=== PATIENT | female | born 1960 | race African-American/Black ===

== ENCOUNTER 2024-01-16 17:31 | Emergency (ER) | payer OTHER, SELFPAY ==
--- NOTE | ~2024-01-16 | US_ITS ---
EXAMINATION: US VENOUS ULTRASOUND WITH DOPPLER LOWER EXTREMITY, BILATERAL CLINICAL INFORMATION: Pain COMPARISON: None available. TECHNIQUE: Ultrasound of the deep veins is performed from the hip to the calf with compression sonography and color and pulse Doppler assessment. Spectral analysis with color-flow imaging is performed. FINDINGS: RIGHT: There is normal venous compression and respiratory variation and augmented flow. The visualized common femoral vein, superficial femoral vein, profunda femoral vein, shows no evidence of deep venous thrombosis. There is no significant popliteal fossa cyst. There is nonocclusive thrombus in the right popliteal vein. LEFT: There is normal venous compression and respiratory variation and augmented flow. The visualized common femoral vein, superficial femoral vein, profunda femoral vein, popliteal vein, and the trifurcation region shows no evidence of deep venous thrombosis. There is no significant popliteal fossa cyst. If the patient's symptoms persist, followup ultrasound in 5 days 7 days might be of value to exclude proximal propagation from a non-visualized calf vein. US/US venous duplex LE BI IMPRESSION: 1. Nonocclusive thrombus in the right popliteal vein. 2. No DVT in the left lower extremity.
--- NOTE | ~2024-01-16 | XR_ITS ---
EXAMINATION: XR CHEST CLINICAL INFORMATION: Volume overload COMPARISON: None available. TECHNIQUE: Frontal view of the chest was obtained. FINDINGS: Heart size upper limits of normal. There is mild upper zone redistribution. No interstitial edema or pleural effusions. No infiltrates or lung masses. XR/XR chest 1V IMPRESSION: Mild upper zone redistribution without interstitial edema. Findings could be secondary to volume overload.
[2024-01-16 17:53] VITALS: BP 124/74; PULSE 80; PULSE 82; RESP 19; TEMP 36.8; O2SAT 96; O2SAT 99; BMI 25.5
--- NOTE | 2024-01-16 18:12 | ED.GENADULT ---
HPI - General Adult General Chief complaint: General Medical Stated complaint: From [facility], cool extremities per PCP. Time Seen by Provider: 01/16/24 17:43 Source: patient, RN notes reviewed and old records reviewed Mode of arrival: EMS Limitations: other (Patient has paranoid delusions and history of schizophrenia) History of Present Illness ED Provider: Jaylen SANABRIA narrative: 63-year-old female presents for evaluation of bilateral leg swelling with calf pain. She she is currently taking Tylenol, Tums, ibuprofen, lisinopril, lorazepam, melatonin, Senokot, autism, hydroxyzine She has a history of atrial fibrillation and does not appear to be anticoagulated The patient presents from [facility] on a section 21 due to bilateral leg swelling and calf pain She denies any known history of DVT/PE She is not sure how long her legs have been swollen Denies any fevers, chills, shortness of breath, cough, chest pain Related Data Previous Rx's ?Medication ?Instructions ?Recorded apixaban 5 mg (74 tabs) tablets in 5 mg PO BID #74 ea 01/16/24 a dose pack (Eliquis DVT-PE Treat 30D Start) Allergies Allergy/AdvReac Type Severity Reaction Status Date / Time almond Allergy Itching Verified 01/16/24 17:57 Review of Systems Constitutional: Constitutional: Denies body ache(s), Denies chills, Denies fever(s) and Denies headache(s) Eyes: Eyes: Denies blurry vision ENT: Denies headache(s) and Denies sore throat Cardiovascular: Cardiovascular: Denies chest pain, Reports pedal edema, Reports claudication, Reports leg edema and Denies dyspnea Respiratory: Respiratory: Denies cough, Denies pain with cough and Denies dyspnea Gastrointestinal: Gastrointestinal: Denies abdominal pain, Denies nausea and Denies vomiting Musculoskeletal: Musculoskeletal: Denies back pain Integumentary/Breasts: Skin/Breast: Denies rash Neurologic: Denies headache(s) [facility] Social History Social History Smoked in Last 30 Days: No Use of substances other than those prescribed or required for medical reasons: No Advance Directives: No Advance Directives Information Provided: No Do you have a plan to hurt others: No Plan Physical Exam ED Vital Signs: Vital Signs - 24 hr 01/16/24 17:53 01/16/24 20:13 Temperature 98.2 F 98.2 F Pulse Rate 80 90 Respiratory Rate 19 17 Blood Pressure 110/55 L Pulse Oximetry 96 96 Oxygen Delivery Method Room Air Room Air BMI result Body Mass Index 25.5 Const General: healthy appearing, comfortable, no acute distress, alert and awake Nutritional Appearance: well nourished Orientation/consciousness: patient oriented x3 HENMT Head: Yes normocephalic and Yes atraumatic Eyes Eyelids: Yes eyelids normal Conjunctivae: conjunctivae normal Sclerae: sclerae normal Corneas: corneas normal Pupils: Equal, round and reactive pupils present EOM: EOMs intact bilaterally Neck Neck: Yes full ROM Resp Effort & Inspection: normal respiratory effort, able to speak in complete sentences and not labored Cardio Other: 2+ bilateral lower extremity edema slightly greater on the right compared to the left. Bilateral calf tenderness. No palpable cords Rate: regular rate Rhythm: regular rhythm GI Inspection: No distended Palpation (GI): Soft to palpation, not firm, nontender, no guarding and not rigid Skin General skin exam: elasticity normal Neuro General: patient oriented x3 Cranial nerves: Yes Equal, round and reactive pupils present and Yes Bilaterally intact EOM present Cognition (Neuro): normal cognition Extrem Other: Moving all extremities well without any obvious deformities Course Reevaluation(s) Reevaluation #1: Patient's ultrasound shows a nonocclusive DVT in the right popliteal vein. No DVT in the left lower extremity. I discussed this with the patient using a flatwork finisher hand. I discussed medication of Eliquis. I answered all the questions the patient asked and she would like a copy of her ultrasound report Time: 21:33 Medical Decision Making Medical Decision Making [facility] Narrative: 63-year-old female with past medical history as documented above presents for evaluation of leg swelling. She denies any trauma to the area. She is a poor historian and is currently at [facility] for paranoid delusions. Plan for labs, chest x-ray and ultrasounds. Will rule out DVT, heart failure with the patient is not in any respiratory distress and has not crackles on exam. Heart failure is favored to be less likely. There is no erythema or skin changes to suggest cellulitis Differential Diagnosis Differential Diagnoses: The differential diagnosis associated with the presentation includes DVT Dependent edema Leg swelling Medication side effect CHF Lab Data [facility] Lab Attestation statement: I reviewed the patient's lab results. No leukocytosis. The patient does have a mild anemia. There is no active bleeding. Considered rectal exam for guaiac testing but the patient declines sodium, potassium within normal limits. Patient's BUN is slightly elevated to 22 with a normal creatinine of 0.91. Patient's BNP is within normal limits 81. 01/16/24 19:57 01/16/24 19:57 Labs: Lab Results 01/16/24 01/16/24 Range/Units 19:57 20:29 WBC 5.4 (4.8-10.8) X10*3/uL RBC 3.57 L (4.20-5.50) X10*6/uL Hgb 9.5 L (12.0-16.0) g/dl Hct 29.8 L (37.0-47.0) % MCV 83.5 (80.0-98.0) fL MCH 26.6 L (27.0-33.0) pg MCHC 31.9 (31.0-35.0) g/dl RDW 13.2 (11.0-16.0) % Plt Count 177 (160-400) X10*3/uL MPV 11.3 (9.4-12.3) fL Immature Gran % (Auto) 0.4 (0.0-0.4) % Neut % (Auto) 65.6 (45-73) % Lymph % (Auto) 23.4 (20-40) % Bullitt % (Auto) 7.6 (2-11) % Eos % (Auto) 2.6 (0-4) % Baso % (Auto) 0.4 (0-2) % Lymph # (Auto) 1.3 (1.2-4.9) X10*3/uL Bullitt # (Auto) 0.4 (0.1-1.2) X10*3/uL Eos # (Auto) 0.1 (0.0-0.4) X10*3/uL Baso # (Auto) 0.0 (0.0-0.2) X10*3/uL Abs Immat Gran (auto) 0.02 (0.00-0.03) X10*3/uL Absolute Neuts (auto) 3.5 (2.0-8.3) x10*3/uL Absolute Nucleated RBC 0.000 (0.0-0.012) X10*3/uL Nucleated RBC % (auto) 0.0 (0.0-0.2) /100WBC PT 11.9 (11.1-13.3) SEC INR 1.0 (0.9-1.1) APTT 29.6 (26.0-36.8) SEC Sodium 142 (135-145) mmol/L Potassium 4.6 (3.3-5.1) mmol/L Chloride 109 H (96-108) mmol/L Carbon Dioxide 24 (22-29) mmol/L Anion Gap 14 (12-20) BUN 22 H (9-16) mg/dL Creatinine 0.91 (0.5-1.4) mg/dL Estim Creat Clear Calc 67.0 Estimated GFR > 60 Random Glucose 108 (60-115) mg/dL Calcium 8.7 (8.4-10.2) mg/dL Total Bilirubin 0.2 (0.0-1.0) mg/dL AST 18 (5-31) U/L ALT 21 (0-31) U/L Alkaline Phosphatase 78 (39-117) U/L B-Natriuretic Peptide 81 (<100) pg/mL Total Protein 6.1 L (6.5-8.0) g/dL Albumin 3.4 L (3.5-5.0) g/dL Lipase 12 (8-78) U/L Independent Interpretation I performed an independent interpretation of an: Plain X-Ray (Agree with Radiology interpretation) Radiology Impression Discussion of test interpretation with radiology: I have reviewed the radiologist's reading. Radiologist Impression: Nonocclusive DVT in the right popliteal vein XR/XR chest 1V IMPRESSION: Mild upper zone redistribution without interstitial edema. Findings could be secondary to volume overload. Discharge Plan Discharge Clinical Impression: Leg swelling, Acute deep vein thrombosis (DVT) of right lower extremity Patient Disposition: [facility] Transfer Details: [facility] Instructions: Deep Vein Thrombosis (ED), Blood Thinners (ED) Additional Instructions: You have a nonocclusive blood clot in your right leg. Take Eliquis as prescribed. Included is discharge instructions regarding blood thinners You are more likely to bleed while taking this medication Follow-up with your primary doctor Return for any worsening symptoms Prescriptions: New Melody DVT-PE Treat 30D Start 5 mg (74 tabs) tablets,dose pack 5 mg PO BID Qty: 74 0RF Print Language: Estonian
[2024-01-16 20:02] LABS: MANUAL DIFF FLAG NO
[2024-01-16 20:06] LABS: Basophils Percent Auto 0.4 % (0-2); Eosinophils Absolute Auto 0.1 X10*3/uL (0.0-0.4); Eosinophils Percent Auto 2.6 % (0-4); Hematocrit 29.8 % (37.0-47.0); Hemoglobin 9.5 g/dl (12.0-16.0); Imm Gran Abs Auto 0.02 X10*3/uL (0.00-0.03); Imm Gran Pct Auto 0.4 % (0.0-0.4); Lymphocytes Absolute Auto 1.3 X10*3/uL (1.2-4.9); Lymphocytes Percent Auto 23.4 % (20-40); Mean Corpuscular HGB Conc 31.9 g/dl (31.0-35.0); Mean Corpuscular Hemoglobin 26.6 pg (27.0-33.0); Mean Corpuscular Volume 83.5 fL (80.0-98.0); Mean Platelet Volume 11.3 fL (9.4-12.3); Monocytes Absolute Auto 0.4 X10*3/uL (0.1-1.2); Monocytes Percent Auto 7.6 % (2-11); Neutrophils Absolute Auto 3.5 x10*3/uL (2.0-8.3); Neutrophils Percent Auto 65.6 % (45-73); Platelet Count 177 X10*3/uL (160-400); Red Blood Count 3.57 X10*6/uL (4.20-5.50); Red Cell Distribution Width 13.2 % (11.0-16.0); White Blood Count 5.4 X10*3/uL (4.8-10.8)
[2024-01-16 20:13] VITALS: BP 110/55; PULSE 90; RESP 17; TEMP 36.8; O2SAT 96
[2024-01-16 20:19] LABS: Alanine Aminotransferase 21 U/L (0-31); Albumin Level 3.4 g/dL (3.5-5.0); Alkaline Phosphatase 78 U/L (39-117); Anion Gap 14 (12-20); Aspartate Amino Transferase 18 U/L (5-31); Bilirubin Total 0.2 mg/dL (0.0-1.0); Blood Urea Nitrogen 22 mg/dL (9-16); Calcium 8.7 mg/dL (8.4-10.2); Carbon Dioxide 24 mmol/L (22-29); Chloride 109 mmol/L (96-108); Estimated Glomerular Filt Rate > 60; Glucose Random 108 mg/dL (60-115); Lipase 12 U/L (8-78); Potassium 4.6 mmol/L (3.3-5.1); Sodium 142 mmol/L (135-145); Total Protein 6.1 g/dL (6.5-8.0)
[2024-01-16 20:26] LABS: B Type Natriuretic Peptide 81 pg/mL (<100)
[2024-01-16 20:45] LABS: Prothrombin Time 11.9 SEC (11.1-13.3)
[2024-01-16 20:48] LABS: Partial Thromboplastin Time 29.6 SEC (26.0-36.8)
[2024-01-16] MEDS: Furosemide 20 MG TABLET PO (21:47)
[2024-01-16] MEDS: Apixaban 5 MG TABLET 10 MG PO (21:47)
--- NOTE | 2024-01-16 22:03 | PC.NURSE ---
attempted to call hayden steele for report unsuccessful
--- NOTE | 2024-01-16 22:08 | PC.NURSE ---
called hayden steele and gave nurse to nurse report
[2024-01-16 22:09] VITALS: BP 110/55; PULSE 90; RESP 17; TEMP 36.6; O2SAT 96
== END 2024-01-16 22:35 ==
PROVIDERS: Physician Assistant; Emergency Provider Internal Medicine; PCP Registered Nurse General Practice
DX: I82.431 Acute embolism and thrombosis of right popliteal vein (principal); F20.9 Schizophrenia, unspecified; Z79.899 Other long term (current) drug therapy
CPT/HCPCS: 36415; 71045; 80053; 83690; 83880; 85025; 85610; 85730; 93970; 99285